=== PATIENT | female | born 1965 | race African-American/Black ===

== ENCOUNTER 2016-06-13 08:13 | Day surgery (SDC) | payer OTHER ==
[2016-06-10 12:27] VITALS: BMI 31.2
[2016-06-13] MEDS ORDERED: LIDOCAINE HCL 1%, 10 MG/ML (20ML VIAL) ONE (09:20)
[2016-06-13] MEDS ORDERED: MIDAZOLAM HCL 2 MG/2 ML SINGLE DOSE VIAL ONE (12:09)
[2016-06-13] MEDS ORDERED: PROPOFOL 20 ML ONE ×2 (12:44)
[2016-06-13] MEDS ORDERED: ceFAZolin SODIUM 1 GM VIAL IVPB ONE ×2 (12:46)
[2016-06-13] MEDS ORDERED: ceFAZolin SODIUM 1 GM VIAL ONE (12:48)
[2016-06-13] MEDS ORDERED: LIDOCAINE HCL 1%, 10 MG/ML (20ML VIAL) IJ ONE (13:00)
--- NOTE | 2016-06-13 13:42 | HP ---
History & Physical Update - History History: No Change - Physical Physical: No Change - Assessment Assessment: No Change - Plan Plan: No Change
[2016-06-13 13:44] VITALS: TEMP 97.9
[2016-06-13] MEDS ORDERED: PROMETHAZINE HCL 25 MG/1 ML VIAL IVPUSH PRN (13:46)
[2016-06-13] MEDS ORDERED: ONDANSETRON 4 MG/2 ML VIAL IVPUSH PRN (13:46)
[2016-06-13] MEDS ORDERED: oxyCODONE HCL 5 MG TABLET PO PRN (13:46)
[2016-06-13] MEDS ORDERED: LACTATED RINGERS SOLUTION 1,000 ML IV SCH (14:00)
--- NOTE | 2016-06-13 14:53 | OP ---
DATE OF OPERATION: 06/13/2016 PREOPERATIVE DIAGNOSIS: Left breast ductal carcinoma in situ. POSTOPERATIVE DIAGNOSIS: Left breast ductal carcinoma in situ. PROCEDURE: Left breast wire-localized lumpectomy. SURGEON: Kirsten Pedro MD ANESTHESIA: Local, IV sedation. ESTIMATED BLOOD LOSS: Minimal. COMPLICATION: None. DISPOSITION: Stable procedure. INDICATIONS: The patient presented with a screening mammogram that noted calcifications in the lower outer left breast. A needle biopsy showed ductal carcinoma in situ. My recommendation is a lumpectomy. The procedure was discussed with her. PROCEDURE IN DETAIL: Patient was brought to [facility], taken to breast imaging, where a wire was used to localize the clip in the lower outer left breast. She was then brought up to the operating room. After induction of IV sedation and IV antibiotics, the left breast was prepped and draped in usual sterile fashion. The area in the lower outer left breast was anesthetized with 1% lidocaine without epinephrine. A curvilinear incision was made in the lower outer left breast and the wire was used as a guide to get down to the area of interest. This was excised en bloc, tagged with a long stitch lateral, short stitch superior. I did take an ellipse of skin as well in this location. This was sent for specimen radiograph. Hemostasis assured with electrocautery. Specimen radiograph showed the clip and wire to be intact within the specimen, with what appeared to be adequate margins. This was then sent to Pathology for permanent section. Once hemostasis was assured, the parenchyma was approximated with interrupted 2-0 Vicryl, skin approximated with interrupted 3-0 Vicryl, running 4-0 Prolene. A sterile dressing with Tegaderm and 4 x 4 was applied. She tolerated the procedure well, was taken to recovery room in good condition. KIRSTEN PEDRO M.D. [id number]
[2016-06-13 16:26] VITALS: BP 100/62; PULSE 88
--- NOTE | 2016-06-17 14:54 | PATH ---
Surgical Pathology Report Patient Name: RU LOZA [facility]. Rec. #: [id number] /Age/Gender: 1965 (Age: 50) / F Account: [id number] Location: [facility] SURGICAL Taken: 06/13/2016 Received: 06/13/2016 Reported: 06/17/2016 Physicians: Kirsten Jones M.D. Specimen(s) Received LEFT BREAST LUMPECTOMY Clinical History DCIS Final Diagnosis BREAST, LEFT, LUMPECTOMY: DUCTAL CARCINOMA IN SITU (DCIS), INTERMEDIATE NUCLEAR GRADE, SOLID, CRIBRIFORM AND MICROPAPILLARY TYPE, WITH FOCAL CENTRAL NECROSIS. DCIS EXTENT: DCIS IS PRESENT ON 7 OF 9 EXAMINED SLIDES WITH THE LARGEST EXTENT ON ONE SLIDE OF 1.1 CM ASSOCIATED PRIOR BIOPSY SITE CHANGES PRESENT. SURGICAL RESECTION MARGINS: DCIS IS FOCALLY LESS THAN 1 MM FROM THE LATERAL AND DEEP MARGINS, 1 MM FROM INFERIOR AND MEDIAL MARGINS; OTHER MARGINS >2 MM FROM DCIS. BENIGN SKIN WIH DERMAL SCAR. SURROUNDING BREAST TISSUE: FOCAL ATYPICAL DUCTAL HYPERPLASIA (ADH); FIBROCYSTIC CHANGES FOCAL USUAL DUCT HYPERPLASIA AND CYSTIC APOCRINE METAPLASIA AND STROMAL FIBROSIS. PATHOLOGIC STAGING: REFER TO THE CHECKLIST BELOW. RECEPTOR STATUS: REFER TO THE CHECKLIST BELOW. Comment: Immunohistochemical stains for SMM-HC and p63 performed and interpreted [facility] on block #3 show preserved myoepithelial cells around DCIS. Comments DCIS of Breast: Surgical Pathology Cancer Case Summary Based on AJCC/UICC TNM, 7th edition Procedure _x_ Excision with image-guided localization Lymph Node Sampling _x_ Not performed Specimen Laterality _x_ Left Estimated size (extent) of DCIS (greatest dimension using gross and microscopic evaluation): Number of blocks with DCIS: 7 Number of blocks examined: 9 Largest extent on one slide: 1.1 cm Nuclear Grade _x_ Grade II (intermediate) Necrosis _x_ Focally. present, central Microcalcifications _x_ Not identified Margins _x_ Margins close to DCIS: DCIS is <1mm from the lateral and deep margins, 1mm from inferior and medial margins Lymph Node Involvement _x_ Not applicable Pathologic Staging (pTNM) Primary Tumor (pT): pTis (DCIS). Regional Lymph Nodes (pN): pNX Biomarker Studies Results of ER and MA studies performed on prior biopsy ([id number]) at [facility] are as follows: ER (clone [id number] mouse monoclonal antibody by [employer]): >90% nuclear staining with strong intensity (Positive). MA (clone16 mouse monoclonal antibody by [employer]): ~60% nuclear staining with strong intensity (Positive). Positive and negative controls (internal if applicable) show appropriate results. Formalin fixation and cold ischemic times are within current ASCO/CAP recommendations for ER, MA and Her2 testing. Electronically Signed Gume Shrestha M.D. Gross Description Received fresh on an AccuGrid, labeled "left breast lumpectomy" is a 5.0 x 4.8 x 1.6 cm. orozco-yellow, irregular, portion of fibroadipose tissue with a needle localization wire present. There is a short suture marking the superior aspect and a long suture marking the lateral aspect, per the surgeon. The anterior surface displays a 3.0 x 0.6 cm orozco, elliptical, unremarkable portion of skin. The specimen is inked as follows: Superior blue; inferior green; lateral red; medial yellow; deep black. The specimen is serially sectioned from lateral to medial. Sectioning reveals a 1.1 x 1.0 x 0.9 cm focus of firm fibrous tissue with associated hemorrhage. The focus abuts the superior, inferior and medial margins. No definitive masses are identified. Billing Control Clerk sections are submitted in 9 cassettes as follows: 1-firm focus of fibrous tissue with superior and inferior margins; 4-3-uddlurdbxt fibrous tissue with superior and inferior margins; 5-6-medial margin; 7-skin; 8-deep margin; 9-lateral margin. Time to fixation:<1h Total formalin fixation time: ~7h 06/13/201606/13/2016
== END 2016-06-13 16:26 | disposition home or self-care (01) ==
LOC: JASU-SURG 08:13
PROVIDERS: ATTEND Surgery
PROC: 0HBU0ZZ Excision of Left Breast, Open Approach (ICD-10-PCS; principal; 2016-06-13 11:30)
DX: D05.12 Intraductal carcinoma in situ of left breast (principal)
CPT/HCPCS: 19281; 84703; 88307-TC; 88341-TC; 88342-TC; 94760